=== PATIENT | male | born 1945 | race Caucasian/White ===

== ENCOUNTER → 2016-03-25 | Day surgery (SDC) | payer MEDICARE ==
--- NOTE | 2016-03-23 17:15 | MH ---
cc: BAM SORTO DATE OF ADMISSION 03/25/2016 DATE OF 1945 INDICATION A 70-year-old male with a history of chronic sinusitis. Kyle has had office sinuplasty but continues to be symptomatic particularly on the left side at the maxillary, ethmoid, frontal sinusitis and the right sphenoid sinus. He is to undergo bilateral endoscopic sinusotomies. PAST MEDICAL HISTORY Significant for: Nasal congestion and chronic sinusitis. MEDICATIONS 1. Atorvastatin. 2. Augmentin. 3. Januvia. 4. Levothyroxine. 5. Metformin. 6. Nasocort. 7. Pantoprazole. ALLERGIES TO MEDICATIONS INCLUDE SEPTRA WITH GI ISSUES. PHYSICAL EXAMINATION GENERAL: This is a well-developed, well-nourished male in no apparent distress. HEENT: Normocephalic, atraumatic. Extraocular motions intact. External ear canals clear. Lips and mucosa, pharynx show no lesions. Nasal examination shows mucopurulent secretions related to the left middle meatus into the right sphenoid recess. NECK: Shows no masses. CHEST: Clear to auscultation. HEART: Regular rate. ABDOMEN: Soft. No lesion. EXTREMITIES: No lesion. NEUROLOGICAL: Intact. ASSESSMENT This is a 70-year-old male with chronic sinusitis and nasal obstruction. He is to undergo bilateral endoscopic sinusotomies. The risks and benefits were discussed with the patient. The risks include but not limited to those of anesthesia, bleeding, unfavorable scarring, CSF leak, meningitis, brain abscess, double vision, vision loss, blindness, anosmia, septal perforation, epistaxis. The patient states he understands and accepts the risks of the procedure. MD PARESH Givens/BENNY /4:30 PM /5:02 PM
[~2016-03-25] VITALS: Ht 170.2 cm; Wt 104.8 kg
[~2016-03-25] MED LIST: *LABETALOL HCL 100 MG/20 ML VIAL PERIprocedural Use ONLY ONE; *morphine SULFATE 8 MG/ML PERIprocedure ONLY ONE; ACETAMINOPHEN 1000 MG/100 ML VIAL IV ONE; ACETAMINOPHEN/HYDROcodone 325 MG/5 MG TAB PO PRN; CENTTAB PO; CO Q100C9 PO; DO NOT ADM ANY ANTICOAGULANT DRUGS XX PRN; EPINEPHrine HCL (1:1000) 30 MG/30 ML VIAL OTHER ONE; FIBECHW PO; GELATIN 12 MM/7 MM FOAM OTHER ONE; GLIP5TAB8 PO; INSULIN HUMAN REGULAR 1,000 UNITS/10 ML VIAL SQ PRN; LACTATED RINGER'S 1000 ML IV SCH; LEVO112T2 PO; LIDOCAINE 1%/EPINEPHrine 1:100,000 SOLN 50 ML VIAL INFIL ONE; LISI10TA3 PO; METOPROLOL TARTRATE 25 MG TAB PO PRN; MORPHINE SULFATE 4 MG/ML INJ IV PRN; NADO40TA PO; ONDANSETRON HCL 4 MG/2 ML VIAL IV PRN; ONDANSETRON HCL 4 MG/2 ML VIAL IV PUSH ONE; PANT40TA3 PO; PHENYLEPH/NS 1000 MCG/10 ML SYR IV ONE; PROPOFOL 200 MG/20 ML AMP IV ONE; SITA1TAB2 PO; SODIUM CHLORID 0.9% 500 ML IV SCH; VITA10002 PO; VITA500T PO; [UNRECOGNIZED DRUG - CODE] PO; fentaNYL CITRATE 250 MCG/5 ML AMP ONE
[2016-03-25 06:43] VITALS: BP 152/68; PULSE 72; RESP 18; TEMP 98; O2SAT 97
[2016-03-25 07:12] LABS: AUTOMATED NEUTROPHIL # 3.2 TH/MM3 (1.8-7.7); BASOPHIL # 0.1 TH/MM3 (0-0.2); BASOPHIL % 2.2 % (0.0-2.0); EOSINOPHIL # 0.3 TH/MM3 (0-0.4); EOSINOPHIL % 4.8 % (0.0-4.0); HEMATOCRIT 41.3 % (39.0-51.0); HEMO FLAGS DIFF FINAL; LYMPHOCYTE # 1.4 TH/MM3 (1.0-4.8); MEAN CELL VOLUME 86.5 FL (80.0-100.0); MEAN CORPUSCULAR HEMOGLOBIN 28.4 PG (27.0-34.0); MEAN CORPUSCULAR HGB CONC 32.8 % (32.0-36.0); MONO % 10.7 % (0.0-8.0); NEUT % 57.3 % (16.0-70.0); PLATELET COUNT 106 TH/MM3 (150-450); RED BLOOD COUNT 4.77 MIL/MM3 (4.50-5.90); RED CELL DISTRIBUTION WIDTH 15.4 % (11.6-17.2); WHITE BLOOD COUNT 5.6 TH/MM3 (4.0-11.0)
--- NOTE | 2016-03-25 09:21 | MP ---
cc: BAM SORTO M.D. DATE OF SURGERY: 03/25/2016 INDICATIONS This is a 70-year-old male with chronic sinusitis and nasal obstruction. Martin has had persistent pressure and blockage. He had undergone an office procedure but did not clear at the left maxillary, ethmoid, frontal complex and has had drainage from the right sphenoid area. He is to undergo bilateral endoscopic sinusotomies. PREOPERATIVE DIAGNOSIS 1. Chronic sinusitis. 2. Nasal obstruction. POSTOPERATIVE DIAGNOSIS 1. Chronic sinusitis. 2. Nasal obstruction. PROCEDURE 1. Right endoscopic sphenoid sinusotomy. 2. Left endoscopic frontal sinusotomy. 3. Left endoscopic ethmoid sinusotomy. 4. Left endoscopic maxillary sinusotomy, removal of soft tissue. SUMMARY The patient was brought to the operating room and placed in supine position, successfully placed under general anesthesia and prepared in the usual fashion for this procedure. The nose was first topically decongested with topical adrenaline and the area of the middle meatus and the posterior nose were infiltrated with Xylocaine with epinephrine was 1:100,000. Attention was turned to the left side. The uncinate process was identified and an uncinectomy was created. There were mucopurulent secretions at the maxillary sinus. These were cultured. Then endoscopic maxillary sinusotomy was completed with removal of soft tissue and the sinus widely opened and suctioned completely clear. The ethmoid was next entered anteriorly and under endoscopic guidance an anterior endoscopic ethmoidectomy was completed with the microdebrider, opening the ethmoid bulla. The frontal recess was dissected opening the area at the superior uncinate attachment completing endoscopic frontal sinusotomy. The right side of the nose was identified. The middle meatus was examined. The maxillary endoscopy showed the maxillary sinus was widely opened from balloon sinuplasty and there was no purulence here. The patient did show some polypoid changes just anterior to the sphenoid sinus and these were removed. This approach allowed opening up to the sphenoid sinus which was approached from a transnasal route and endoscopic sphenoid sinusotomy was completed with mucopurulent secretions, completely evacuated and suctioned clear. The patient tolerated the procedure well. Gelfoam packing was placed at the left middle meatus. He was awakened and taken to Recovery in stable condition. MD ESTHELA Givens /9:03 AM /9:07 AM
[2016-03-25 11:20] VITALS: BP 170/74; PULSE 69; RESP 20; TEMP 97.9; O2SAT 98
--- NOTE | 2016-03-25 22:28 | EKG ---
Date Performed: 03/25/2016 Time Performed: 07:14:51 PTAGE: 70 years EKG: Sinus rhythm NORMAL ECG NO PREVIOUS TRACING DOCTOR: Obie Hurd Interpretating Date/Time 03/25/2016 22:25:57
== END | disposition home or self-care (01) ==
LOC: HSDC 06:06
PROVIDERS: ATTEND Specialist
DX: J32.4 Chronic pansinusitis (principal); R09.81 Nasal congestion; B95.61 Methicillin susceptible Staphylococcus aureus infection as the cause of diseases classified elsewhere; Z01.810 Encounter for preprocedural cardiovascular examination; Z01.818 Encounter for other preprocedural examination
CPT/HCPCS: 00160; 31267; 31276; 31287; 85025; 86403; 87070; 87186; 87205; 93005; J0131; J0171; J2270; J2370; J2405; J3010; J7120